=== PATIENT | female | born 1965 | race African-American/Black ===

== ENCOUNTER 2023-07-07 07:52 | Emergency (ER) | payer OTHER ==
[2023-07-07 08:17] VITALS: BP 137/95; PULSE 66; RESP 16; TEMP 98.1; BMI 29.0
[2023-07-07] MEDS ORDERED: IBUPROFEN 600 MG TABLET (FP) PO ONE (08:33)
[2023-07-07] MEDS: IBUPROFEN 600 MG TABLET (FP) PO ONE (08:33)
== END 2023-07-07 09:39 | disposition home or self-care (01) ==
LOC: FER 07:52
DX: S80.01XA Contusion of right knee, initial encounter (principal); V43.92XA Unspecified car occupant injured in collision with other type car in traffic accident, initial encounter
CPT/HCPCS: 73562-TC-RT-FY; 99283-25